=== PATIENT | male | born 1990 | race African-American/Black ===

== ENCOUNTER 2017-08-10 16:39 | Inpatient (IN) | payer OTHER ==
[~2017-08-10] VITALS: Ht 165.1 cm; Wt 72.5 kg
[~2017-08-10 16:39] MED LIST: ARIPIPRAZOLE10 MG PO; ESCITALOPRAM OX20 MG PO
[2017-08-10 17:13] LABS: HEMATOCRIT 43.1 % (38.0-50.0); MCH 27.5 PG (29.0-34.0); MCHC 34.8 G/DL (30.0-36.0); MCV 78.9 FL (86-99); PLATELET COUNT 228 K/uL (156-360); RBC DIS.WIDTH-CV 12.7 % (11.8-14.6); RBC DIS.WIDTH-SD 35.7 % (39-53); RED BLOOD COUNT 5.46 M/uL (4.00-5.50); WHITE BLOOD COUNT 4.6 K/uL (4.1-10.2)
[2017-08-10 17:24] LABS: CHLORIDE 105 mEq/L (99-109); POTASSIUM 3.7 mEq/L (3.7-5.4); SODIUM 138 mEq/L (136-147)
[2017-08-10 17:26] LABS: GLUCOSE 102 mg/dL (70-99)
[2017-08-10 17:29] LABS: SERUM ETHYL ALCOHOL < 10 mg/dL
[2017-08-10 17:30] LABS: GFR ESTIMATE (CALCULATED) > 59 mL/min/ (58.99-99999)
[2017-08-10 17:31] LABS: UREA NITROGEN (BUN) 15 mg/dL (9-23)
[2017-08-10 17:50] LABS: APPEARANCE CLEAR ((CLEAR)); BILIRUBIN NEGATIVE; BLOOD NEGATIVE; COLOR YELLOW ((YELLOW)); GLUCOSE (STRIP) NEGATIVE; KETONES 20; LEUKOCYTES NEGATIVE; NITRITE NEGATIVE; PROTEIN (STRIP) 30; SPECIFIC GRAVITY 1.028 (1.000-1.030); UCUL ADDED? NO
[2017-08-10 18:01] LABS: AMPHETAMINE NEGATIVE (500 ng/mL); BARBITURATES NEGATIVE (200 ng/mL); BENZODIAZEPINES NEGATIVE (150 ng/mL); BUPRENORPHINE NEGATIVE (10 ng/mL); COCAINE NEGATIVE (150 ng/mL); METHADONE NEGATIVE (200 ng/mL); METHAMPHETAMINE NEGATIVE (500 ng/mL); OPIATES (MORPHINE) NEGATIVE (100 ng/mL); OXYCODONE NEGATIVE (100 ng/mL); PHENCYCLIDINE NEGATIVE (25 ng/mL); PROPOXYPHENE NEGATIVE (300 ng/mL); THC CANNABINOIDS PRESUMPTIVE POSITIVE (50 ng/mL); TRICYCLIC ANTIDEPRESSANTS NEGATIVE (300 ng/mL)
[2017-08-10 19:24] VITALS: BP 161/88
[2017-08-11 07:58] VITALS: BP 133/80
[2017-08-11 16:04] VITALS: BP 146/84
[2017-08-12 07:40] VITALS: BP 148/81
[2017-08-12 15:25] VITALS: BP 138/85
[2017-08-13 07:52] VITALS: BP 147/80
[2017-08-13 15:37] VITALS: BP 169/85
[2017-08-13 19:05] VITALS: BP 142/76
[2017-08-14 07:41] VITALS: BP 148/81
[2017-08-14 12:05] VITALS: BP 118/68
[2017-08-14 15:37] VITALS: BP 130/72
[2017-08-15 07:43] VITALS: BP 127/82
[2017-08-15 15:28] VITALS: BP 160/75
[2017-08-16 07:32] VITALS: BP 135/83
[2017-08-16 15:32] VITALS: BP 129/71
[2017-08-17 07:41] VITALS: BP 112/60
[2017-08-17 15:38] VITALS: BP 143/80
[2017-08-18 07:57] VITALS: BP 142/81
[2017-08-18] MEDS ORDERED: ARIPIPRAZOLE10 MG PO (09:30)
[2017-08-18] MEDS ORDERED: ESCITALOPRAM OX20 MG PO (09:30)
== END 2017-08-18 14:33 | disposition home or self-care (01) | DRG 885 ==
LOC: EME 16:39 → 1WEST 18:28 → EDOF 18:28 → ENRESERV 19:15 → 1WEST 19:15
PROVIDERS: Emergency Medicine
DX: F25.1 Schizoaffective disorder, depressive type (principal); R45.851 Suicidal ideations; F12.90 Cannabis use, unspecified, uncomplicated; J45.909 Unspecified asthma, uncomplicated; R63.4 Abnormal weight loss; F17.200 Nicotine dependence, unspecified, uncomplicated
CPT/HCPCS: 80048; 81003; 84443; 84999; 85027; 90839; 97150 GO; 97166 GO; 99281; 99285; G0480